=== PATIENT | female | born 1950 | race Caucasian/White ===

== ENCOUNTER 2019-06-06 09:23 | Outpatient (CLI) | payer MEDICARE, BC, SELFPAY ==
--- NOTE | ~2019-06-06 | MM_ITS ---
EXAMINATION: MM screening [facility] BI w alex HISTORY: Screening mammogram TECHNIQUE: Craniocaudal and mediolateral oblique 3-D tomosynthesis images were obtained and synthetic 2-D images were generated. CAD analysis was submitted and interpreted. COMPARISON: 06/04/2018, 05/11/2017, 05/03/2016, 04/18/2016 BREAST PARENCHYMAL COMPOSITION: There are scattered areas of fibroglandular density. FINDINGS: There is no evidence of suspicious mass, calcification, or architectural distortion to sugg est malignancy in either breast. There has been no suspicious interval change. IMPRESSION: 1. No mammographic evidence of malignancy. 2. Recommend routine screening mammography in one year. BI-RADS Category 1: Negative Reviewed, dictated and finalized at location A. ING FIREFIGHTER
== END 2019-06-06 09:24 | disposition home or self-care (01) ==
PROVIDERS: PCP Family Medicine Adolescent Medicine
DX: Z12.31 Encounter for screening mammogram for malignant neoplasm of breast (principal)
CPT/HCPCS: 77063; 77067

== ENCOUNTER 2019-06-25 09:01 | Outpatient (CLI) | payer MEDICARE, BC, SELFPAY ==
--- NOTE | ~2019-06-25 | DEXA_ITS ---
Bone Density Report Name: Lauren Velazquez Age: 69 Sex: Female Ethnicity: White Date of : 1950 Indication: osteopenia; Referring Provider: JEAN FLORES Study: Bone densitometry was performed. Exam Date: June 25, 2019 Accession number: [id number] Bone Density: Region BMD T-score Z-score Classification AP Spine (L1-L4) 0.848 -1.8 0.2 Osteopenia Femoral Neck (Left) 0.870 0.2 1.9 Normal Total Hip (Left) 0.979 0.3 1.8 Normal Total Hip Bilateral Avg 0.983 0.4 1.8 Normal Femoral Neck (Right) 0.861 0.1 1.9 Normal Total Hip (Right) 0.987 0.4 1.8 Normal World Health Organization criteria for BMD impression classify patients as: Normal (T-score at or above -1.0), Osteopenia (T-score between -1.0 and -2.5), or Osteoporosis (T-score at or below -2.5). 10-year Fracture Risk(1): Major Osteoporotic Fracture 7.0% Hip Fracture 0.3% Reported Risk Factors: [place] (), Neck BMD=0.861, BMI=24.2 (1) FRAX(R) Version 3.08. Fracture probability calculated for an untreated patient. Fracture probability may be lower if the patient has received treatment. Previous Exams: Region Exam Age BMD T-score BMD Change BMD Change Date g/cm2 vs Baseline vs Previous AP Spine(L1-L4) 06/25/2019 69 0.848 -1.8 -0.147(-14.8%) -0.047(-5.2%)* 04/17/2017 67 0.895 -1.4 -0.101(-10.1%) 0.009(1.0%) 04/14/2015 65 0.886 -1.5 -0.110(-11.0%) -0.075(-7.8%)# 02/19/2009 58 0.961 -0.8 -0.035(-3.5%)* -0.035(-3.5%)* 06/14/2002 52 0.995 -0.5 Total Hip(Left) 06/25/2019 69 0.979 0.3 -0.028(-2.8%)# 0.033(3.4%)* 04/17/2017 67 0.946 0.0 -0.061(-6.0%)# -0.005(-0.6%) 04/14/2015 65 0.952 0.1 -0.056(-5.5%)# -0.036(-3.7%)# 02/19/2009 58 0.988 0.4 -0.019(-1.9%) -0.019(-1.9%) 06/14/2002 52 1.007 0.5 Total Hip(Right) 06/25/2019 69 0.987 0.4 -0.026(-2.5%)# 0.017(1.8%) 04/17/2017 67 0.969 0.2 -0.043(-4.2%)# 0.012(1.3%) 04/14/2015 65 0.957 0.1 -0.055(-5.5%)# -0.053(-5.2%)# 02/19/2009 58 1.010 0.6 -0.003(-0.3%) -0.003(-0.3%) 06/14/2002 52 1.012 0.6 *Denotes significance at 95% confidence level, LSC for AP Spine = 0.022 g/cm2, LSC for Total Hip = 0.027 g/cm2 Clinical Information Provided by Patient: Has used the following medications: Calcium Patient maximum height was 66 Menopause Age: 55 Drinks caffeinated beverages Onset of menses at age 14 Number of children 2
== END 2019-06-25 09:02 | disposition home or self-care (01) ==
PROVIDERS: PCP Family Medicine Adolescent Medicine
DX: Z78.0 Asymptomatic menopausal state (principal); M85.88 Other specified disorders of bone density and structure, other site
CPT/HCPCS: 77080

== ENCOUNTER 2020-06-09 09:57 | Outpatient (CLI) | payer MEDICARE, BC, SELFPAY ==
--- NOTE | ~2020-06-09 | MM_ITS ---
EXAMINATION: MM screening [facility] BI w alex HISTORY: Screening mammogram TECHNIQUE: Craniocaudal and mediolateral oblique 3-D tomosynthesis images were obtained and synthetic 2-D images were generated. CAD analysis was submitted and interpreted. COMPARISON: 06/06/2019, 05/27/2018, 05/11/2017 BREAST PARENCHYMAL COMPOSITION: The breasts are heterogeneously dense, which may obscure small masses . FINDINGS: There is no evidence of suspicious mass, calcification, or architectural distortion to sugg est malignancy in either breast. There has been no suspicious interval change. IMPRESSION: 1. No mammographic evidence of malignancy. 2. Recommend routine screening mammography in one year. BI-RADS Category 1: Negative Reviewed, dictated and finalized at location A. LIGHTER
== END 2020-06-09 09:58 | disposition home or self-care (01) ==
LOC: ANHIMG 10:05
PROVIDERS: PCP Family Medicine Adolescent Medicine; Visit Provider Family Medicine Adolescent Medicine
DX: Z12.31 Encounter for screening mammogram for malignant neoplasm of breast (principal)
CPT/HCPCS: 77063; 77067

== ENCOUNTER → 2020-09-22 10:33 | Outpatient (CLI) | payer MEDICARE, BC, SELFPAY ==
--- NOTE | ~2020-09-22 | XR_ITS ---
EXAMINATION: XR sacrum coccyx min 2V INDICATION: Coccyx pain TECHNIQUE: Three views of the sacrum and coccyx are obtained. COMPARISON: 07/01/2009 FINDINGS: Bone alignment is normal. There is no fracture. A phlebolith is noted in the right pelvis. There is mild lower lumbar spondylosis. IMPRESSION: 1. No acute osseous abnormality. Reviewed, dictated and finalized at location A.
== END ==
PROVIDERS: PCP Family Medicine Adolescent Medicine; Visit Provider Physician Assistant
DX: M53.3 Sacrococcygeal disorders, not elsewhere classified (principal)
CPT/HCPCS: 72220

== ENCOUNTER 2021-07-05 08:27 | Outpatient (CLI) | payer MEDICARE, BC, SELFPAY ==
--- NOTE | ~2021-07-05 | MM_ITS ---
EXAMINATION: MM screening [facility] BI w alex HISTORY: Screening mammogram TECHNIQUE: Craniocaudal and mediolateral oblique 3-D tomosynthesis images were obtained and synthetic 2-D images were generated. CAD analysis was submitted and interpreted. COMPARISON: 06/09/2020, 06/06/2019 BREAST PARENCHYMAL COMPOSITION: The breasts are heterogeneously dense, which may obscure small masses . FINDINGS: RIGHT BREAST: There is no evidence of suspicious mass, calcification, or architectural distortion to suggest malignancy. There has been no significant interval change. LEFT BREAST: There is a possible mass in the far posterior third of the lower, slightly outer breast. IMPRESSION: 1. Possible left breast mass. 2. Additional mammographic views and possible breast ultrasound are recommended. BI-RADS Category 0: Incomplete: Needs additional imaging evaluation. Reviewed, dictated and finalized at location A. K ANALYST IMPRESSION: 1. Possible left breast mass. 2. Additional mammographic views and possible breast ultrasound are recommended . BI-RADS Category 0: Incomplete: Needs additional imaging evaluation.
== END 2021-07-05 08:28 | disposition home or self-care (01) ==
LOC: ANHIMG 08:30
PROVIDERS: PCP Family Medicine Adolescent Medicine
DX: Z12.31 Encounter for screening mammogram for malignant neoplasm of breast (principal); R92.8 Other abnormal and inconclusive findings on diagnostic imaging of breast
CPT/HCPCS: 77063; 77067

== ENCOUNTER → 2021-07-27 07:34 | Outpatient (CLI) | payer MEDICARE, BC, SELFPAY ==
--- NOTE | ~2021-07-27 | MR_ITS ---
EXAMINATION: MR lumbar spine wo con EXAM DATE: 07/27/2021 08:02 INDICATION: Lumbar Radiculopathy. Low back pain. TECHNIQUE: Multi-sequential, multiplanar MR images of the lumbar spine were obtained without contrast . Sagittal T1, T2, T2 fat saturation images. Axial T2 weighted images. There is no prior study for comparison. FINDINGS: The vertebral bodies are aligned in the AP dimension. There is mild disc disease L2-3 and L 3-4. The conus medullaris terminates at the T12-L1 level and has normal signal intensity and morpholo gy. There are no suspicious marrow signal abnormalities. Imaged portions of right renal lesion is co nsistent with a cyst. Level by level evaluation: T12-L1: Disc does not extend beyond the endplate margin. Facet arthropathy: Mild. Neural foraminal stenosis: No stenosis. Central canal stenosis: No stenosis. L1-L2: Disc does not extend beyond the endplate margin. Facet arthropathy: Mild. Neural foraminal stenosis: No stenosis. Central canal stenosis: No stenosis. L2-L3: There is a mild diffuse disc bulge. Facet arthropathy: Mild. Neural foraminal stenosis: No stenosis. Central canal stenosis: No stenosis. L3-L4: There is a mild diffuse disc bulge. Facet arthropathy: Mild. Neural foraminal stenosis: No stenosis. Central canal stenosis: No stenosis. L4-L5: There is a mild diffuse disc bulge. Facet arthropathy: Mild. Neural foraminal stenosis: No stenosis. Central canal stenosis: No stenosis. L5-S1: There is a mild diffuse disc bulge. Facet arthropathy: Moderate left, mild right. Neural foraminal stenosis: No stenosis. Central canal stenosis: No stenosis. IMPRESSION: 1. Mild lumbar spondylosis without stenosis. Reviewed, dictated and finalized at location G.
== END ==
PROVIDERS: PCP Family Medicine Adolescent Medicine; Visit Provider Nurse Practitioner Adult Health
DX: M47.26 Other spondylosis with radiculopathy, lumbar region (principal)
CPT/HCPCS: 72148

== ENCOUNTER 2021-08-02 11:40 | Outpatient (CLI) | payer MEDICARE, BC, SELFPAY ==
--- NOTE | ~2021-08-02 | MMUS_ITS ---
EXAMINATION: MM diagnostic [facility] LT w alex, US breast LT limited HISTORY: Possible left breast mass on screening mammogram TECHNIQUE: Additional 3-D tomosynthesis images of the left breast were performed and synthetic 2-D im ages were generated. CAD analysis was submitted and interpreted. High resolution limited left breast ultrasound was performed. COMPARISON: 07/05/2021, 06/09/2020, 06/06/2019 BREAST PARENCHYMAL COMPOSITION: The breasts are heterogeneously dense, which may obscure small masses . FINDINGS: MAMMOGRAPHIC FINDINGS: There is a 4 mm irregular equal density mass in the posterior third of the lower breast at the 6:00 l ocation 7 cm from the nipple. ULTRASOUND: There is a 4 mm x 3 mm oval, hypoechoic, not parallel mass with possible irregular margins at the 6:0 0 location 5 cm from the nipple. No definite posterior features or internal vascularity are identifie d. IMPRESSION: 1. Indeterminate left breast mass. 2. Ultrasound-guided biopsy is recommended. BI-RADS category 4, suspicious findings. Reviewed, dictated and finalized at location A. IMPRESSION: 1. Indeterminate left breast mass. 2. Ultrasound-guided biopsy is recommended. BI-RADS category 4, suspicious findings.
== END 2021-08-02 11:41 | disposition home or self-care (01) ==
PROVIDERS: PCP Family Medicine Adolescent Medicine
DX: R92.8 Other abnormal and inconclusive findings on diagnostic imaging of breast (principal)
CPT/HCPCS: 76642; 77061; 77065; G0279

== ENCOUNTER 2021-08-19 09:06 | Outpatient (CLI) | payer MEDICARE, BC, SELFPAY ==
--- NOTE | ~2021-08-19 | MMUS_ITS ---
US breast biopsy LT w image, MM post biopsy invasive LT EXAMINATION: US GUIDED NEEDLE BIOPSY WITH VAC UUM ASSISTANCE DATE: 08/19/2021 10:50 CDT INDICATION: Left breast mass seen on prior examination. Ultrasound-guided core biopsy is requested t o evaluate for malignancy. TECHNIQUE AND FINDINGS: The risks and potential benefits of the procedure were discussed with the patient, and written inform ed consent was obtained. After sterile preparation of the left breast, 1% lidocaine was utilized for local anesthesia. 1% lidocaine with epinephrine was used for deep anesthesia. A 10G vacuum-assisted biopsy gun needle was advanced through to the outer edge of the region of inter est from a inferior approach utilizing sonographic guidance. A total of 5 tissue core samples were o btained through the lesion. An Inrad tissue marker clip was then placed at the biopsy site. Hemostas is was achieved. The patient tolerated procedure well and there was no evidence of immediate complication. The patien t was given verbal instructions partly is from the department. Left breast mammograms to document ti ssue marker clip placement. The tissue samples were submitted to surgical pathology for histologic an alysis. IMPRESSION: 1. Successful ultrasound-guided vacuum-assisted biopsy of left breast mass with tissue marker placem ent. Please refer to pathology report for histologic analysis. Reviewed, dictated and finalized at location A. IMPRESSION: 1. Successful ultrasound-guided vacuum-assisted biopsy of left breast mass wit h tissue marker placement. Please refer to pathology report for histologic anal ysis.
== END 2021-08-19 09:07 | disposition home or self-care (01) ==
PROVIDERS: PCP Family Medicine Adolescent Medicine; Visit Provider Obstetrics & Gynecology
DX: R92.8 Other abnormal and inconclusive findings on diagnostic imaging of breast (principal)
CPT/HCPCS: 19083; 88305; 88342; A4648

== ENCOUNTER 2021-09-09 15:40 | Outpatient (CLI) | payer MEDICARE, BC, SELFPAY ==
--- NOTE | ~2021-09-09 | DEXA_ITS ---
Bone Density Report Name: MARY SINCLAIR Age: 71 Sex: Female Ethnicity: White Date of : 1950 Indication: osteopenia; height loss; Referring Provider: ARMEN, RIC Crowe Study: Bone densitometry was performed. Exam Date: September 09, 2021 Accession number: [id number] Bone Density: Region BMD T-score Z-score Classification AP Spine(L1-L4) 0.910 -1.2 0.9 Osteopenia Femoral Neck (Left) 0.848 0.0 1.9 Normal Total Hip (Left) 0.937 0.0 1.5 Normal Femoral Neck (Right) 0.847 0.0 1.9 Normal Total Hip (Right) 0.967 0.2 1.8 Normal Total Hip Mean 0.952 0.1 1.7 Normal World Health Organization criteria for BMD impression classify patients as: Normal (T-score at or above -1.0), Osteopenia (T-score between -1.0 and -2.5), or Osteoporosis (T-score at or below -2.5). 10-year Fracture Risk(1): Major Osteoporotic Fracture 7.2% Hip Fracture 0.5% Reported Risk Factors: [place] (), Neck BMD=0.848, BMI=23.6 (1) FRAX(R) Version 3.08. Fracture probability calculated for an untreated patient. Fracture probability may be lower if the patient has received treatment. Previous Exams: Region Exam Age BMD T-score BMD Change BMD Change Date g/cm2 vs Baseline vs Previous AP Spine (L1-L4) 09/09/2021 71 0.910 -1.2 0.024 (2.8%)* 0.062 (7.4%)* 06/25/2019 69 0.848 -1.8 -0.038 (-4.3%) -0.047 (-5.2%) 04/17/2017 67 0.895 -1.4 0.009 (1.0%) 0.009 (1.0%) 04/14/2015 65 0.886 -1.5 Total Hip(Left) 09/09/2021 71 0.937 0.0 -0.015 (-1.5%) -0.042 (-4.3%) 06/25/2019 69 0.979 0.3 0.027 (2.9%) 0.033 (3.4%)* 04/17/2017 67 0.946 0.0 -0.005 (-0.6%) -0.005 (-0.6%) 04/14/2015 65 0.952 0.1 Total Hip(Right) 09/09/2021 71 0.967 0.2 0.010 (1.1%) -0.019 (-2.0%) 06/25/2019 69 0.987 0.4 0.030 (3.1%)* 0.017 (1.8%) 04/17/2017 67 0.969 0.2 0.012 (1.3%) 0.012 (1.3%) 04/14/2015 65 0.957 0.1 *Denotes significance at 95% confidence level, LSC for AP Spine = 0.022 g/cm2, LSC for Total Hip = 0.027 g/cm2 Clinical Information Provided by Patient: Has used the following medications: Calcium Patient maximum height was 66 Menopause Age: 50 Drinks caffeinated beverages Onset of menses at age 15 Number of children 2 Impression: The patient has low bone mass, based on the Total Spine T-score. The patient has an estimated ten-year risk of hip fracture of 0.5% and an estimate
== END 2021-09-09 15:41 | disposition home or self-care (01) ==
PROVIDERS: PCP Family Medicine Adolescent Medicine; Visit Provider Obstetrics & Gynecology
DX: Z78.0 Asymptomatic menopausal state (principal); M85.88 Other specified disorders of bone density and structure, other site
CPT/HCPCS: 77080

== ENCOUNTER 2023-11-02 01:02 | Day surgery (SDC) | payer MEDICARE, BC, SELFPAY ==
[2023-10-16 13:54] VITALS: BMI 23.6
[2023-11-02 07:13] VITALS: BP 146/71; PULSE 86; RESP 17; TEMP 36; O2SAT 100; BMI 22.9
--- NOTE | 2023-11-02 07:23 | WPDANESEPPF ---
Anes - Initial Pre Proc Eval Procedure: Operation Date: 11/02/23 08:30 Proposed Procedures p Colonoscopy - Bradley Hilton MD Date/Time: 11/02/23 07:23 Surgeon: Bradley Hilton MD Pre Op Diagnosis: Personal hx. colon polyps Patient Data Age: 73 Gender: F Height: 1.65 m Weight: 62.5 kg Last Vital Signs Temp 96.8 F L 11/02/23 07:13 Pulse 86 11/02/23 07:13 Resp 17 11/02/23 07:13 BP 146/71 H 11/02/23 07:13 Pulse Ox 100 11/02/23 07:13 O2 Del Method Room Air 11/02/23 07:13 Allergies Allergy/AdvReac Type Severity Reaction Status Date / Time No Known Allergies Allergy Verified 11/02/23 07:08 Home Medications Medication Instructions Recorded Confirmed Type cyclosporine 0.05 % eye drops in a 1 drp EACH EYE Q12H 12/20/21 11/02/23 History dropperette (Restasis) lidocaine 5 % topical ointment 1 applic topical QID PRN skin 12/20/21 11/02/23 History irritation melatonin 5 mg capsule 5 mg PO QHS 12/20/21 11/02/23 History escitalopram oxalate 10 mg tablet 10 mg PO DAILY #90 tabs 12/05/22 11/02/23 Rx tamoxifen 20 mg tablet 20 mg PO DAILY 12/22/22 11/02/23 History simvastatin 20 mg tablet See Rx Instructions .Route 02/12/23 11/02/23 Rx .COMPLEX #90 tabs pantoprazole 40 mg tablet,delayed See Rx Instructions .Route 05/18/23 11/02/23 Rx release .COMPLEX #90 tabs levothyroxine 75 mcg tablet See Rx Instructions .Route 08/21/23 11/02/23 Rx .COMPLEX #90 tabs candesartan 32 mg tablet See Rx Instructions .Route 08/26/23 11/02/23 Rx .COMPLEX #90 tabs Patient hx anesthesia problems: none Family hx anesthesia problems: none Results Review: All pre-operative results and documents have been reviewed as part of the pre-operative evaluation. [facility] Past Medical History Medical History Breast cancer (10/2021) Hx of breast cancer (10/2021) Hx of radiation therapy (10/2021) Surgical History Surgical History Hx of lumpectomy (10/2021) left Social History Social History Smoking status: Never smoker Second hand tobacco smoke exposure: No Alcohol intake: current Alcohol use details: rare Substance use: never Substance use type: does not use Lack of Transportation: No Lack of Food: Never True Current Housing: I Have Housing Concerned About Future Housing: No Difficulty Paying Gas/Electric Bills: No Difficulty Paying for Meds: No Currently Unemployed: No Education: Bachelor's Degree Difficulty w/ Childcare or Family Care: No Living arrangements: other Additional living arrangements comments: with sp Occupation/Education: retired Additional occupation/education comments: Retired but works transportation department supervisor Gender identity (if verbalized by the patient): Female Spiritual care concerns: No Anes - Eval Final PreProcedure Day of Procedure 11/02/23 07:23 Patient weight: normal Heart: regular rate and rhythm Lungs: clear to auscultation Airway: Mallampati scale class II and special considerations (Perm implant. ) Neurological: alert and oriented Last oral intake: >/= 8 hours ASA classification: II Emergent: no Anesthetic plan: proceed Anesthesia type and monitoring: general GIVS and standard monitoring Results Review: All pre-operative results and documents have been reviewed as part of the pre-operative evaluation. Informed Consent: The patient's anesthetic plan and its attendant risks and benefits were discussed with the patient/family/POA. Questions were solicited and answers provided to the satisfaction of the patient/family/POA.
[2023-11-02] MEDS: LACTATED RINGERS 1,000 ML 150 ML IV CONT (07:28)
--- NOTE | 2023-11-02 08:33 | PM.HPGS ---
History of Present Illness History of Present Illness Consent: Risks, benefits, and alternatives have been discussed and questions answered. Patient agrees to proceed with procedure. Chief complaint: Personal hx. colon polyps Narrative: Lauren Velazquez is a 73 year old female here for screening colonoscopy, last one 2015 Review of Systems Review of Systems: All systems reviewed & are unremarkable except as noted in HPI and below PMFSH Past Medical History Medical History (Updated 11/02/23 @ 08:35 by Bradley Hilton MD) Breast cancer (10/2021) Colon cancer screening Hx of breast cancer (10/2021) Hx of radiation therapy (10/2021) Surgical History Surgical History Hx of lumpectomy (10/2021) left Social History Social History Smoking status: Never smoker Second hand tobacco smoke exposure: No Alcohol intake: current Alcohol use details: rare Substance use: never Substance use type: does not use Lack of Transportation: No Lack of Food: Never True Current Housing: I Have Housing Concerned About Future Housing: No Difficulty Paying Gas/Electric Bills: No Difficulty Paying for Meds: No Currently Unemployed: No Education: Bachelor's Degree Difficulty w/ Childcare or Family Care: No Living arrangements: other Additional living arrangements comments: with sp Occupation/Education: retired Additional occupation/education comments: Retired but works parts counter associate Gender identity (if verbalized by the patient): Female Spiritual care concerns: No Meds Home Medications and Allergies Home Medications Medication Instructions Recorded Confirmed Type cyclosporine 0.05 % eye drops in a 1 drp EACH EYE Q12H 12/20/21 11/02/23 History dropperette (Restasis) lidocaine 5 % topical ointment 1 applic topical QID PRN skin 12/20/21 11/02/23 History irritation melatonin 5 mg capsule 5 mg PO QHS 12/20/21 11/02/23 History escitalopram oxalate 10 mg tablet 10 mg PO DAILY #90 tabs 12/05/22 11/02/23 Rx tamoxifen 20 mg tablet 20 mg PO DAILY 12/22/22 11/02/23 History simvastatin 20 mg tablet See Rx Instructions .Route 02/12/23 11/02/23 Rx .COMPLEX #90 tabs pantoprazole 40 mg tablet,delayed See Rx Instructions .Route 05/18/23 11/02/23 Rx release .COMPLEX #90 tabs levothyroxine 75 mcg tablet See Rx Instructions .Route 08/21/23 11/02/23 Rx .COMPLEX #90 tabs candesartan 32 mg tablet See Rx Instructions .Route 08/26/23 11/02/23 Rx .COMPLEX #90 tabs Allergies Allergy/AdvReac Type Severity Reaction Status Date / Time No Known Allergies Allergy Verified 11/02/23 07:08 Vital Signs Vital Signs - 24 hr 11/02/23 07:13 Temperature 96.8 F L Pulse Rate 86 Respiratory Rate 17 Blood Pressure 146/71 H Pulse Oximetry 100 Oxygen Delivery Room Air Exam Const: General: comfortable and no acute distress HENMT: Face/Nose/Sinus: Normal nares present Eyes: General: appearance normal, both eyes and all related structures Neck: Neck: no JVD Resp: Auscultation: clear to auscultation bilaterally Cardio: Rate: regular rate Rhythm: regular rhythm GI: Inspection: non-distended GI Palp: Yes Soft to palpation Skin: General skin exam: normal color Neuro: General: gait normal Speech: normal speech Extrem: General: normal to inspection Psych: Mental Status: mental status grossly normal Assessment and Plan Assessment and plan (1) Colon cancer screening: Code(s): Z12.11 - Encounter for screening for malignant neoplasm of colon Status: Acute Assessment and Plan: colonoscopy
[2023-11-02 09:02] VITALS: BP 119/63; PULSE 73; RESP 18; O2SAT 96
[2023-11-02 09:12] VITALS: BP 121/67; PULSE 74; RESP 25; O2SAT 100
[2023-11-02 09:22] VITALS: BP 131/69; PULSE 67; RESP 16; O2SAT 99
== END 2023-11-02 09:36 | disposition home or self-care (01) ==
PROVIDERS: PCP Family Medicine Adolescent Medicine; Visit Provider Internal Medicine Gastroenterology
PROC: 0DJD8ZZ Inspection of Lower Intestinal Tract, Via Natural or Artificial Opening Endoscopic (ICD-10-PCS; CPT 45378; principal; 2023-11-02 08:30)
DX: Z12.11 Encounter for screening for malignant neoplasm of colon (principal); D12.2 Benign neoplasm of ascending colon; D12.3 Benign neoplasm of transverse colon; K57.30 Diverticulosis of large intestine without perforation or abscess without bleeding; K64.8 Other hemorrhoids; Z85.3 Personal history of malignant neoplasm of breast
CPT/HCPCS: 45385; 88305; J2001; J2704; J7120

== ENCOUNTER 2024-01-11 07:54 | Outpatient (CLI) | payer MEDICARE, BC, SELFPAY ==
--- NOTE | ~2024-01-11 | DEXA_ITS ---
Bone Density Report Name: MARY SINCLAIR Age: 73 Sex: Female Ethnicity: White Date of : 1950 Indication: osteopenia; height loss; cancer; Referring Provider: ARMEN, RIC Crowe Study: Bone densitometry was performed. Exam Date: January 11, 2024 Accession number: [id number] Bone Density: Region BMD T-score Z-score Classification AP Spine(L1-L4) 0.907 -1.3 1.1 Osteopenia Femoral Neck (Left) 0.827 -0.2 1.8 Normal Total Hip (Left) 1.016 0.6 2.3 Normal Femoral Neck (Right) 0.831 -0.2 1.8 Normal Total Hip (Right) 0.971 0.2 1.9 Normal Total Hip Mean 0.993 0.4 2.1 Normal World Health Organization criteria for BMD impression classify patients as: Normal (T-score at or above -1.0), Osteopenia (T-score between -1.0 and -2.5), or Osteoporosis (T-score at or below -2.5). 10-year Fracture Risk(1): Major Osteoporotic Fracture 7.6% Hip Fracture 0.7% Reported Risk Factors: [place] (), Neck BMD=0.827, BMI=23.1 (1) FRAX(R) Version 3.08. Fracture probability calculated for an untreated patient. Fracture probability may be lower if the patient has received treatment. Previous Exams: Region Exam Age BMD T-score BMD Change BMD Change Date g/cm2 vs Baseline vs Previous AP Spine (L1-L4) 01/11/2024 73 0.907 -1.3 0.022 (2.4%) -0.003 (-0.3%) 09/09/2021 71 0.910 -1.2 0.024 (2.8%)* 0.062 (7.4%)* 06/25/2019 69 0.848 -1.8 -0.038 (-4.3%) -0.047 (-5.2%) 04/17/2017 67 0.895 -1.4 0.009 (1.0%) 0.009 (1.0%) 04/14/2015 65 0.886 -1.5 Total Hip(Left) 01/11/2024 73 1.016 0.6 0.065 (6.8%)* 0.079 (8.5%)* 09/09/2021 71 0.937 0.0 -0.015 (-1.5%) -0.042 (-4.3%) 06/25/2019 69 0.979 0.3 0.027 (2.9%) 0.033 (3.4%)* 04/17/2017 67 0.946 0.0 -0.005 (-0.6%) -0.005 (-0.6%) 04/14/2015 65 0.952 0.1 Total Hip(Right) 01/11/2024 73 0.971 0.2 0.014 (1.4%) 0.003 (0.3%) 09/09/2021 71 0.967 0.2 0.010 (1.1%) -0.019 (-2.0%) 06/25/2019 69 0.987 0.4 0.030 (3.1%)* 0.017 (1.8%) 04/17/2017 67 0.969 0.2 0.012 (1.3%) 0.012 (1.3%) 04/14/2015 65 0.957 0.1 *Denotes significance at 95% confidence level, LSC for AP Spine = 0.022 g/cm2, LSC for Total Hip = 0.027 g/cm2 Clinical Information Provided by Patient: Has used the following medications: HRT (i.e. estrogen/hormone therapy) Has the following medical conditions: Cancer Patient maximum height was 66 Menopause Age: 50 No regular weight bearing e
== END 2024-01-11 07:55 | disposition home or self-care (01) ==
LOC: ANHIMG 07:55
PROVIDERS: PCP Family Medicine Adolescent Medicine; Visit Provider Obstetrics & Gynecology
DX: Z78.0 Asymptomatic menopausal state (principal)
CPT/HCPCS: 77080

== ENCOUNTER → 2024-08-15 10:36 | Outpatient (CLI) | payer MEDICARE, BC, SELFPAY ==
--- NOTE | ~2024-08-15 | XR_ITS ---
AP and lateral views of the right femur Clinical History: Pain Findings: No acute fracture or dislocation is seen. Osseous alignment is anatomic. Visualized joint s paces are grossly preserved. Soft tissues are unremarkable. Impression: Unremarkable right femoral radiographs. Reviewed, dictated and finalized at location M. Impression: Unremarkable right femoral radiographs.
== END ==
PROVIDERS: PCP Family Medicine Adolescent Medicine; Visit Provider Nurse Practitioner Family
DX: M79.651 Pain in right thigh (principal); W19.XXXA Unspecified fall, initial encounter
CPT/HCPCS: 73552